=== PATIENT | female | born 1980 | race Caucasian/White ===

== ENCOUNTER 2018-07-03 02:20 | Emergency (ER) | payer OTHER ==
[2018-07-03 02:28] VITALS: TEMP 98.2
[2018-07-03] MEDS ORDERED: methylPREDNISolone SOD SUCCI 125 MG/2 ML VIAL IV STA (02:35)
[2018-07-03] MEDS ORDERED: SODIUM CHLORIDE 0.9% 1,000 ML IV ONE (02:36)
[2018-07-03] MEDS ORDERED: FAMOTIDINE 20 MG/2 ML VIAL IV STA (02:36)
--- NOTE | 2018-07-03 03:14 | ED ---
General Adult HPI - General Chief complaint: Allergic Reaction Stated complaint: Allergic Reaction Source: patient, family Mode of arrival: ambulatory Limitations: no limitations - History of Present Illness Initial comments: 37-year-old female denies past medical history presenting today for chief complaint of ALLERGIC reaction. Patient states that she was spraying "onslaught " a flea and insecticide. She states that she was spraying this while a ceiling fan was running around 5:00 in her home. Patient states that 8:30 she began noting saying a burning sensation of everywhere where her skin was exposed , including her face, neck, upper extremities. She states she noticed redness as well as itchiness in the areas exposed. Patient denies any facial swelling, feeling as though his throat or tongue swelling, lip swelling, diarrhea, nausea , vomiting, abdominal pain, cough, wheezes or stridor. Patient denies any ocular involvement or pain, or oral ingestion. Patient states she took Benadryl for the itching, she states she took 5 doses over the course of the past 3-5 hours. Patient states this did not help alleviate her symptoms of itching. Patient presented to emergency department for evaluation. Upon arrival patient appears well, there are no signs of respiratory distress, vital signs stable. - Related Data Home Medications Medication Instructions Recorded Confirmed No Known Home Medications 07/03/18 07/03/18 Allergies Allergy/AdvReac Type Severity Reaction Status Date / Time No Known Allergies Allergy Verified 07/03/18 02:28 Review of Systems ROS Statement: Those systems with pertinent positive or pertinent negative responses have been documented in the HPI. ROS Other: All systems not noted in ROS Statement are negative. Constitutional: Denies: fever, chills, weight change ENT: Denies: throat pain Respiratory: Denies: cough, dyspnea Cardiovascular: Denies: chest pain, palpitations Gastrointestinal: Denies: abdominal pain, nausea, vomiting, diarrhea, constipation, hematemesis, melena, hematochezia Genitourinary: Denies: urgency, dysuria, frequency Musculoskeletal: Denies: back pain Skin: Reports: rash, change in color (erythema), pruritus Past Medical History Past Medical History: No Reported History History of Any Multi-Drug Resistant Organisms: None Reported Past Surgical History: Tubal Ligation Additional Past Surgical History / Comment(s): eyes Past Psychological History: No Psychological Hx Reported Smoking Status: Current every day smoker Past Alcohol Use History: None Reported Past Drug Use History: None Reported General Exam - General Exam Comments Initial Comments: General: The patient is awake and alert, in no distress, and does not appear acutely ill. Eye: Pupils are equal, round and reactive to light, extra-ocular movements are intact. No nystagmus. There is normal conjunctiva bilaterally. No signs of icterus. Ears, nose, mouth and throat: There are moist mucous membranes and no oral lesions. Neck: The neck is supple, there is no tenderness or JVD. Cardiovascular: There is a regular rate and rhythm. No murmur, rub or gallop is appreciated. Respiratory: Lungs are clear to auscultation, respirations are non-labored, breath sounds are equal. No wheezes, stridor, rales, or rhonchi. Musculoskeletal: Normal ROM, no tenderness. Strength 5/5. Sensation intact. Pulses equal bilaterally 2+. Neurological: A&O x 3. CN II-XII intact, There are no obvious motor or sensory deficits. Coordination appears grossly intact. Speech is normal. Skin: Skin is warm and dry. Mild erythema of the upper arms, cheeks, neck. No warmth, no swelling noted. Blanchable, no vesicles. Psychiatric: Cooperative, appropriate mood & affect, normal judgment. Limitations: no limitations Course Vital Signs 07/03/18 07/03/18 02:23 04:27 Temperature 98.2 F Pulse Rate 96 77 Respiratory 22 20 Rate Blood Pressure 123/77 133/76 O2 Sat by Pulse 100 Oximetry Medical Decision Making - Medical Decision Making PE revealed findings concerning for superficial chemical rajan from contact with solution. Pt given steriod, pepcid for itching/erythema. No improvement of itching. Pt denies respiratory or systemic symptoms. No signs concerning for anaphylaxis or systemic allergic reaction. Pt has already showered, and applied lotion to area. I contacted poison control who recommended washing with soap and water, no further treatment warranted. Pt denies ocular or oral involvement. Pt appears well. Pt given topical benadryl. pt requesting discharge. Case discussed in detail with Dr. Khan who agreed with impression of superficial chemical burn/irritation. Pt was instructed to follow-up with primary care provider, and continue using Benadryl for itching. Patient is agreeable to plan, denies questions at this time. Patient discharged in stable condition after discussing return parameters in detail. Disposition Clinical Impression: Chemical dermatitis Disposition: HOME SELF-CARE Condition: Good Instructions: Dermatitis (ED) Additional Instructions: Please follow-up with family doctor in the next 2 days. Please return to emergency room if the symptoms increase or worsen or for any other concerns, as discussed. Is patient prescribed a controlled substance at d/c from ED?: No Referrals: None,Stated [Primary Care Provider] - 1-2 days Time of Disposition: 03:13
[2018-07-03] MEDS ORDERED: diphenhydrAMINE 2% CREAM 28.4 GM TUBE TOPICAL STA (03:41)
[2018-07-03 04:28] VITALS: BP 133/76; PULSE 77; RESP 20
== END 2018-07-03 04:28 | disposition home or self-care (01) ==
LOC: EC 02:20
DX: T60.91XA Toxic effect of unspecified pesticide, accidental (unintentional), initial encounter (principal); L25.3 Unspecified contact dermatitis due to other chemical products; F17.200 Nicotine dependence, unspecified, uncomplicated
CPT/HCPCS: 99283; 96374; 96375; 96361 ×2; J2930

== ENCOUNTER → 2024-01-19 | Outpatient (CLI) | payer BC ==
--- NOTE | 2024-01-19 18:43 | MR ---
EXAMINATION TYPE: MR shoulder RT wo con DATE OF EXAM: 01/19/2024 COMPARISON: None HISTORY: Rt shoulder pain TECHNIQUE: Multiplanar, multisequence imaging of the right shoulder is performed without contrast. FINDINGS: There is no bone contusion or fracture. There is minimal degenerative change of the AC joint with a small subacromial spur resulting in mild shoulder impingement There is intrasubstance tears of the infraspinatus with no retraction of the musculotendinous junctio n. There is a small rim rent tear of the supraspinatus without retraction. The subscapularis tendon is intact. The biceps tendon is normal in signal intensity and position within the bicipital groove. There is a complex tear of the superior cartilaginous labrum consistent with a SLAP injury. The biceps anchor is intact. There is mild subacromial and subdeltoid bursitis. IMPRESSION: 1. Mild shoulder impingement as described above. 2. SLAP injury. 3. Subacromial and subdeltoid bursitis. 4. Tears of the supraspinatus and infraspinatus tendons without retraction as described above.
== END | disposition home or self-care (01) ==
LOC: RADMRIMAIN 11:02
PROVIDERS: ATTEND Orthopaedic Surgery
DX: M25.811 Other specified joint disorders, right shoulder (principal); S46.011A Strain of muscle(s) and tendon(s) of the rotator cuff of right shoulder, initial encounter; M75.51 Bursitis of right shoulder

== ENCOUNTER → 2024-02-04 | Outpatient (CLI) | payer BC ==
[2024-02-04 15:02] LABS: Basophils # (A) 0.02 X 10*3/uL (0.00-0.10); Basophils % (A) 0.3 %; Eosinophils # (A) 0.17 X 10*3/uL (0.04-0.35); Eosinophils % (A) 2.8 %; HCT 38.4 % (37.2-46.3); HGB 12.9 g/dL (12.0-15.0); Lymphocytes # (A) 1.72 X 10*3/uL (0.90-5.00); Lymphocytes % (A) 27.9 %; MCH 31.9 pg (27.0-32.0); MCHC 33.6 g/dL (32.0-37.0); Mean Platelet Volume 10.4 FL (9.5-12.2); Monocytes # (A) 0.58 X 10*3/uL (0.20-1.00); Monocytes % (A) 9.4 %; NRBC Per 100 WBC 0 X 10*3/uL (0.00-0.01); Neutrophils # (A) 3.65 X 10*3/uL (1.80-7.70); Neutrophils % (A) 59.3 %; Platelet Count 201 X 10*3/uL (140-440); RBC 4.04 X 10*6/uL (4.10-5.20); RDW 12.4 % (11.5-14.5); WBC 6.16 X 10*3/uL (4.50-10.00)
[2024-02-04 15:24] LABS: BUN/Creat Ratio 20.67 Ratio (12.00-20.00); Blood Urea Nitrogen 12.4 mg/dL (9.0-27.0); Calcium 9.1 mg/dL (8.7-10.3); Carbon Dioxide 20.8 mmol/L (21.6-31.8); Chloride 105 mmol/L (96-109); Glucose 91 mg/dL (70-110); Sodium 138 mmol/L (135-145)
== END | disposition home or self-care (01) ==
LOC: LABPAT 07:15
PROVIDERS: ATTEND Orthopaedic Surgery
DX: Z01.812 Encounter for preprocedural laboratory examination (principal); M75.41 Impingement syndrome of right shoulder
CPT/HCPCS: 80048; 85025

== ENCOUNTER 2024-02-17 12:54 | Day surgery (SDC) | payer BC ==
--- NOTE | 2024-02-15 08:29 | P.HPOR ---
History of Present Illness H&P Date: 02/15/24 Chief Complaint: Right shoulder pain The patient is a 43-year-old [id number] female who presents with right shoulder pain after a recent injury. She's having pain with overhead use and at night. She tried a course of oral steroids along with home exercises. Review of Systems As per HPI Past Medical History Past Medical History: No Reported History History of Any Multi-Drug Resistant Organisms: None Reported Past Surgical History: Tubal Ligation Additional Past Surgical History / Comment(s): eyes Past Psychological History: No Psychological Hx Reported Past Alcohol Use History: None Reported Past Drug Use History: None Reported Medications and Allergies Home Medications Medication Instructions Recorded Confirmed Type No Known Home Medications 07/03/18 07/03/18 History Allergies Allergy/AdvReac Type Severity Reaction Status Date / Time No Known Allergies Allergy Verified 07/03/18 02:28 Physical Examination - Shoulder right Tenderness with palpation: anterior, bicipital groove Pain: with abduction, with forward flexion ROM: forward flexion: 140 degrees ROM: internal rotation: upper lumbar ROM: external rotation: 70 degrees Crepitus with motion: Yes Strength: abduction: 4/5 Strength: external rotation: 4/5 Tests: internal impingement tests: positive, external impingment tests: positive Results Patient is a well-developed well-nourished female proximal a 5 foot 3, 145 pounds of mesomorphic habitus. HEENT exam is nonfocal, neck is supple. She's tender about the right shoulder anterior subacromial space. She has mild crepitus. Pope, Neer sign, and speed tests are positive. Her distal neurovascular exam appears intact in the right upper extremity. - Diagnostic results Shoulder MRI: image reviewed (MRI of the right shoulder by report shows evidence of a partial-thickness tear of the supraspinatus and infraspinatus along with a possible superior labral lesion.) Assessment and Plan Assessment: Right rotator cuff strain/partial thickness rotator cuff tear Possible SLAP lesion right shoulder Plan: Talked to the patient at length regarding her condition along with treatment options. At this point she is quite symptomatic despite attempted conservative measures after this acute injury. After a thorough discussion she opts to proceed with surgery. We'll plan to proceed with right shoulder arthroscopic evaluation with possible subacromial decompression, rotator cuff debridement versus repair, in addition to possible superior labral debridement versus repair versus biceps tenotomy
[~2024-02-17 12:54] MED LIST: HYDROmorphone 0.5 MG/0.5 ML SYRINGE IVP PRN; LIDOCAINE 1% (10MG/ML) FOR IV START INTRADERMA PRN
[2024-02-17] MEDS: IV FLUID CONTINUATION 1,000 ML IV ONE (13:16)
[2024-02-17] MEDS: DEXAMETHASONE SOD PHOSPHATE 4 MG/ML 1 ML VIAL IV ONE (13:32)
[2024-02-17] MEDS: LACTATED RINGERS 1,000 ML IV SCH (13:32)
[2024-02-17] MEDS: ONDANSETRON 4 MG/2 ML VIAL IVP ONE (13:32)
[2024-02-17] MEDS: MIDAZOLAM 2 MG/2 ML VIAL IV PRN (13:49)
--- NOTE | 2024-02-17 14:12 | P.ANPRN ---
Procedure Note - Anesthesia - Nerve Block Performed Right Interscalene Single Date of Procedure: 02/17/24 Procedure Start Time: 13:48 Procedure Stop Time: 13:56 Location of Patient: PreOp Indication: Acute Post-Operative Pain, Analgesia, Requested by Surgeon Specifically requested for management of pain by : Farn Chavira Sedation Type: Sedate with meaningful contact maintained Preparation: Sterile Prep Position: Sitting Catheter: None Needle Types: Pajunk Needle Gauge: 21 Ultrasound used to visualize needle placement: Yes Ultrasound used to observe medication spread: Yes Injectate: 0.5% Ropivacaine (see comment for volume) (25ccc plus Decadron 4 mg) Blood Aspirated: No Pain Paresthesia on Injection Noted: No Resistance on Injection: Normal Image Stored and Saved: Yes Events: Uneventful and Well Tolerated
[2024-02-17] MEDS ORDERED: NEOSTIGMINE 1 MG/ML 10 ML VIAL ONE (14:59)
[2024-02-17] MEDS ORDERED: ROCURONIUM 10 MG/ML (5 ML VIAL) IV ONE (14:59)
[2024-02-17] MEDS ORDERED: DEXAMETHASONE SOD PHOSPHATE 4 MG/ML 1 ML VIAL ONE (14:59)
[2024-02-17] MEDS ORDERED: PHENYLEPHRINE 10 MG/ML VIAL ONE (14:59)
[2024-02-17] MEDS ORDERED: MIDAZOLAM 2 MG/2 ML VIAL ONE (14:59)
[2024-02-17] MEDS ORDERED: PROPOFOL 10 MG/ML 20 ML VIAL IV ONE (14:59)
[2024-02-17] MEDS ORDERED: fentaNYL (PF) 50 MCG/ML 2 ML AMP ONE (14:59)
[2024-02-17] MEDS ORDERED: GLYCOPYRROLATE 0.2 MG/ML 2 ML VIAL ONE (14:59)
[2024-02-17] MEDS ORDERED: LIDOCAINE 1% INJ 10MG/ML (20 ML MDV) ONE (14:59)
[2024-02-17] MEDS ORDERED: ROPIVACAINE 5 MG/ML 30 ML VIAL ONE (14:59)
[2024-02-17] MEDS ORDERED: SUCCINYLCHOLINE CHLORIDE 200 MG/10 ML VIAL IV ONE (14:59)
[2024-02-17] MEDS: EPINEPHrine (PF) 1 ML in SODIUM CHLORIDE 0.9% IRRIGATIO 3,000 ML IRRIGATION ONE ×4 (15:27)
[2024-02-17] MEDS: LACTATED RINGERS 1,000 ML IV ONE (16:22)
--- NOTE | 2024-02-17 16:37 | P.OP ---
Date of Procedure: 02/17/24 Preoperative Diagnosis: Right rotator cuff tear/SLAP lesion Postoperative Diagnosis: 1 cm full-thickness rotator cuff tear/type II SLAP tear Procedure(s) Performed: Right shoulder arthroscopic subacromial decompression/biceps tenodesis/rotator cuff repair Implants: Arthrex 4.75 mm swivel lock anchor x 3 Anesthesia: tej VIEIRA Surgeon: Fran Chavira Hand Chain Maker #1: Harjeet Giraldo Estimated Blood Loss (ml): 10 Pathology: none sent Condition: stable Disposition: PACU Indications for Procedure: The patient is a 43-year-old female who presents with persistent/progressive right shoulder pain and weakness after a previous injury despite attempted conservative measures. A discussion of the risks and benefits of operative intervention versus continued conservative measures made with the patient. She opted to proceed with surgery. Operative risks include infection, neurovascular injury, development of blood clots, possible tendon rerupture, possible postoperative stiffness, and possible need for subsequent procedures was discussed. Informed consent was obtained. Operative Findings: As below Description of Procedure: The patient was brought to the operating room, and after induction of general anesthesia was placed in a beachchair position. A preoperative interscalene block was placed for postoperative analgesia. I examined the right shoulder. There was no gross block to passive motion or gross glenohumeral instability. The right upper extremity was prepped and draped in normal fashion. The bony outlines the acromion, distal clavicle, and coracoid process were outlined with a skin marker. The glenohumeral joint was inflated with 50 mL of saline utilizing a spinal needle from posterior approach. A posterior portal was made through a 5 mm skin incision 1 cm medial and inferior to the posterior lateral border time. A blunt trocar was used to easily into the joint. Diagnostic arthroscopy was performed. An anterior portal was made just lateral to the coracoid process entering the joint above the subscapularis tendon. The subscapularis tendon appeared to be intact. Anterior labrum was intact. The inferior recess was inspected. The posterior labrum was intact. The biceps and its anchor was inspected. A type II SLAP lesion was noted with significant anchor instability. It was elected at this point to proceed with tenodesis. The biceps was captured utilizing a loop and tack technique and released from the superior labrum. This was then tenodesed in the upper portion of the bicipital groove utilizing a 4.75 mm swivel lock anchor with good purchase. On inspection the rotator cuff, a full-thickness tear involve the anterior supraspinatus was noted. Minimal retraction was present. The arthroscope was placed into the subacromial space. A lateral portal was made 2 centimeters inferior to the anterior lateral border of the acromion. The rotator cuff was then inspected from the articular surface. It measured approximately 1 cm involving the supraspinatus. This was then easily brought back to the greater tuberosity. The soft tissue on the undersurface of the acromion was debrided with a motorized shaver and electrocautery clearly defining the anterior medial and lateral borders as well as the distal clavicle. An anterior inferior acromioplasty was performed with a motorized aiden starting anterolateral, then extending this posteriorly, then extending this medially. I converted to a flat acromion and this was verified in the posterior and lateral viewing portals. The greater tuberosity was lightly decorticating with a shaver down to a bleeding bony surface. An accessory superior lateral portal was made just off the lateral edge of the acromion for anchor placement. A 4.75 mm swivel lock anchor was placed in the greater tuberosity with the appropriate starting awl. Good purchase was obtained. The preloaded fiber tapes were then passed through the rotator cuff utilizing a scorpion suture passer. A fiber link was used in the central portion of the tear for additional fixation. A lateral 4.75 mm swivel lock anchor was then placed after appropriate tensioning was performed with good purchase. Final arthroscopic view showed adequate compression at the footprint. The arthroscope was then removed. The portals were closed with simple 3-0 nylon sutures. A sterile dressing was applied in addition to an abductor brace. The patient was then awoken from general anesthesia and transferred to recovery room in good condition. Blood loss was estimated at 10 mL. No complications were incurred. Sponge and needle counts were correct in the case. Harjeet TA assisted and the major components of the case to include arm positioning, anchor placement, and rotator cuff repair.
[2024-02-17 16:44] VITALS: TEMP 97.2
[2024-02-17 17:30] VITALS: BP 123/62; PULSE 74; RESP 17
== END 2024-02-17 17:37 | disposition home or self-care (01) ==
LOC: OR 12:54
PROVIDERS: ATTEND Orthopaedic Surgery
DX: S46.011A Strain of muscle(s) and tendon(s) of the rotator cuff of right shoulder, initial encounter (principal); M75.41 Impingement syndrome of right shoulder; G89.18 Other acute postprocedural pain; Z98.51 Tubal ligation status; X58.XXXA Exposure to other specified factors, initial encounter
CPT/HCPCS: 64447; 81025; 29826; 29827; 29828; C1713 ×3; C1894; J2250; J0330; J1100; J2710; J0690; J2405; J0171; J2001; J3010; J2795; J2704; J2371; J1596